=== PATIENT | female | born 1985 | race Caucasian/White ===

== ENCOUNTER 2022-06-03 22:43 | Emergency (ER) | payer BC ==
[~2022-06-03] VITALS: Ht 152.4 cm; Wt 63.5 kg
--- NOTE | 2022-06-03 22:45 | NUR ---
PATIENT BIBA AND TRANSFERRED TO BED 4.
[2022-06-03 22:50] VITALS: BP 141/67
--- NOTE | 2022-06-03 22:50 | NUR ---
EXAMINING PATIENT AT BEDSIDE
--- NOTE | 2022-06-03 22:55 | NUR ---
PHONE CALL TO PATIENT'S PER REQUEST. DOMENICO, . INFORMED DOMENICO THAT PATIENT IS CURRENTLY IN THE ER BEING EVALUATED BY
[2022-06-03] MEDS ORDERED: IBUPROFEN 600 MG TAB PO ONE (23:35)
[2022-06-03] MEDS ORDERED: NAPR-54 PO (23:42)
--- NOTE | 2022-06-04 00:46 | NUR ---
PATIENT BIB [place] [employer]. PATIENT EXAMINED BY DR. BOWDEN. PATIENT MEDICALLY CLEARED AND RELEASED IN CUSTODY IN STABLE CONDITION. ORIGINAL PRE-BOOK FORM GIVEN TO OFFICER BRYNN, #[id number].
== END 2022-06-04 00:46 ==
LOC: MED 22:43
DX: S82.832A Other fracture of upper and lower end of left fibula, initial encounter for closed fracture (principal); S93.401A Sprain of unspecified ligament of right ankle, initial encounter; Z79.899 Other long term (current) drug therapy; V89.2XXA Person injured in unspecified motor-vehicle accident, traffic, initial encounter; Y93.89 Activity, other specified; Y92.89 Other specified places as the place of occurrence of the external cause; Y99.8 Other external cause status
CPT/HCPCS: 29515; 73600; 99283; Q0092